=== PATIENT | female | born 1965 | race Caucasian/White ===

== ENCOUNTER 2020-10-25 15:32 | Outpatient (CLI) | payer OTHER, SELFPAY ==
--- NOTE | ~2020-10-25 | MM_ITS ---
EXAMINATION: MM screening phuc BI w yina HISTORY: Screening mammogram TECHNIQUE: Craniocaudal and mediolateral oblique 3-D tomosynthesis images were obtained and synthetic 2-D images were generated. CAD analysis was submitted and interpreted. COMPARISON: 07/08/2019 diagnostic left digital mammogram and limited left breast ultrasound 06/24/2019, 11/14/2017 bilateral digital screening mammogram examinations BREAST PARENCHYMAL COMPOSITION: FINDINGS: There is no evidence of suspicious mass, calcification, or architectural distortion to sugg est malignancy in either breast. There has been no suspicious interval change. IMPRESSION: 1. No mammographic evidence of malignancy. 2. Recommend routine screening mammography in one year. BI-RADS Category 1: Negative Reviewed, dictated and finalized at location B. WRAPPER
== END 2020-10-25 15:33 | disposition home or self-care (01) ==
PROVIDERS: Visit Provider Student in an Organized Health Care Education/Training Program
DX: Z12.31 Encounter for screening mammogram for malignant neoplasm of breast (principal)
CPT/HCPCS: 77063; 77067

== ENCOUNTER 2023-01-04 07:19 | Outpatient (CLI) | payer OTHER, SELFPAY ==
[2023-01-04 19:20] LABS: Basophils Percent Auto 0.5 % (0.2-1.2); Eosinophils Absolute Auto 0.1 K/mm3 (0-0.3); Eosinophils Percent Auto 3.5 % (0-4.4); Hematocrit 38.1 % (37.0-47.0); Hemoglobin 13.4 g/dL (12.0-15.0); Immature Granulocyte Absolute 0.01 K/mm3 (0.00-0.031); Immature Granulocyte Percent A 0.2 % (0-0.5); Lymphocytes Absolute Auto 1.44 K/mm3 (0.9-3.2); Lymphocytes Percent Auto 35.7 % (18.3-44.2); Mean Corpuscular HGB Conc 35.2 g/dl (32-36); Mean Corpuscular Volume 93.8 fl (80-100); Mean Platelet Volume 8.7 fl (7.4-10.4); Monocytes Absolute Auto 0.4 K/mm3 (0.1-0.6); Monocytes Percent Auto 9.4 % (2.6-8.5); Neutrophils Percent Auto 50.7 % (45.5-73.1); Platelet Count Result 270 k/mm3 (150-375); Red Blood Count 4.06 M/mm3 (4.2-5.4); Red Cell Distribution Width 11.6 % (11.5-14.5)
[2023-01-04 19:52] LABS: Alanine Aminotransferase 35 U/L (6-35); Albumin Level 4.4 g/dL (3.5-5.1); Alkaline Phosphatase 55 U/L (38-126); Anion Gap 5 mmol/L (8-16); Aspartate Amino Transferase 42 U/L (14-36); Bilirubin,Total 0.4 mg/dL (0.2-1.3); Blood Urea Nitrogen 10 mg/dL (7-17); Calcium 8.9 mg/dL (8.4-10.2); Carbon Dioxide 29 mmol/L (22-30); Chloride 101 mmol/L (98-107); Cholesterol 212 mg/dL (0-200); Estimated Glomerular Filt Rate > 60; Glucose 90 mg/dL (65-110); HDL Direct 83 mg/dL; Potassium 3.8 mmol/L (3.4-5.0); Sodium 135 mmol/L (137-145); Triglycerides 97 mg/dL (<150)
[2023-01-04 20:03] LABS: LDL Cholesterol Direct 116 mg/dL
== END 2023-01-04 07:20 | disposition home or self-care (01) ==
LOC: ANHASCLAB 07:22
PROVIDERS: PCP Family Medicine; Visit Provider Family Medicine
DX: R53.83 Other fatigue (principal); Z13.29 Encounter for screening for other suspected endocrine disorder; Z13.220 Encounter for screening for lipoid disorders
CPT/HCPCS: 36415; 80053; 80061; 84443; 85025

== ENCOUNTER 2023-08-27 15:36 | Outpatient (CLI) | payer OTHER, SELFPAY ==
--- NOTE | ~2023-08-27 | MM_ITS ---
EXAMINATION: MM screening phuc BI w yina HISTORY: Screening TECHNIQUE: Craniocaudal and mediolateral oblique 3-D tomosynthesis images were obtained and synthetic 2-D images were generated. CAD analysis was submitted and interpreted. COMPARISON: Comparison to multiple prior studies sequentially, with oldest reviewed study dated 11/14. BREAST PARENCHYMAL COMPOSITION: There are scattered areas of fibroglandular density. FINDINGS: There is no evidence of suspicious mass, calcification, or architectural distortion to sugg est malignancy in either breast. There has been no suspicious interval change. IMPRESSION: 1. No mammographic evidence of malignancy. 2. Recommend routine screening mammography in one year. BI-RADS Category 1: Negative Reviewed, dictated and finalized at location A. EN PRINTING PRESS OPERATOR
== END 2023-08-27 15:37 | disposition home or self-care (01) ==
LOC: ANHIMG 15:36
PROVIDERS: PCP Family Medicine; Visit Provider Student in an Organized Health Care Education/Training Program
DX: Z12.31 Encounter for screening mammogram for malignant neoplasm of breast (principal)
CPT/HCPCS: 77063; 77067

== ENCOUNTER 2024-05-07 08:11 | Outpatient (CLI) | payer OTHER, SELFPAY ==
[2024-05-07 20:24] LABS: Basophils Percent Auto 0.5 % (0.2-1.2); Eosinophils Absolute Auto 0.1 K/mm3 (0-0.3); Eosinophils Percent Auto 1.4 % (0-4.4); Immature Granulocyte Absolute 0.03 K/mm3 (0.00-0.031); Immature Granulocyte Percent A 0.7 % (0-0.5); Lymphocytes Absolute Auto 1.27 K/mm3 (0.9-3.2); Lymphocytes Percent Auto 29.5 % (18.3-44.2); Mean Corpuscular HGB Conc 33.3 g/dl (32-36); Mean Corpuscular Hemoglobin 33.3 pg (26-34); Mean Corpuscular Volume 99.8 fl (80-100); Mean Platelet Volume 8.9 fl (7.4-10.4); Monocytes Absolute Auto 0.3 K/mm3 (0.1-0.6); Monocytes Percent Auto 7.7 % (2.6-8.5); Neutrophils Absolute Auto 2.6 K/mm3 (1.3-6.7); Neutrophils Percent Auto 60.2 % (45.5-73.1); Platelet Count Result 318 k/mm3 (150-375); Red Blood Count 4.51 M/mm3 (4.2-5.4); Red Cell Distribution Width 11.9 % (11.5-14.5); White Blood Count 4.3 K/mm3 (4.5-10.0)
[2024-05-07 20:31] LABS: Alanine Aminotransferase 51 U/L (6-35); Albumin Level 4.7 g/dL (3.5-5.1); Alkaline Phosphatase 60 U/L (38-126); Anion Gap 12 mmol/L (4-12); Aspartate Amino Transferase 86 U/L (14-36); Bilirubin,Total 0.6 mg/dL (0.2-1.3); Blood Urea Nitrogen 7 mg/dL (7-17); Carbon Dioxide 29 mmol/L (22-30); Chloride 94 mmol/L (98-107); Cholesterol 192 mg/dL (0-200); Estimated Glomerular Filt Rate > 60; Glucose 86 mg/dL (65-110); HDL Direct 92 mg/dL; Potassium 3.9 mmol/L (3.4-5.0); Sodium 135 mmol/L (137-145); Triglycerides 104 mg/dL (<150)
[2024-05-07 20:42] LABS: LDL Cholesterol Direct 97 mg/dL
[2024-05-07 20:56] LABS: Thyroid Stimulating Hormone 0.037 uIU/mL (0.465-4.680)
== END 2024-05-07 08:12 | disposition home or self-care (01) ==
LOC: ANHASCLAB 08:12
PROVIDERS: PCP Nurse Practitioner Family; Visit Provider Family Medicine
DX: Z00.00 Encounter for general adult medical examination without abnormal findings (principal); Z13.29 Encounter for screening for other suspected endocrine disorder; R53.83 Other fatigue; Z13.220 Encounter for screening for lipoid disorders
CPT/HCPCS: 36415; 80053; 80061; 84443; 85025

== ENCOUNTER 2025-03-16 13:45 | Outpatient (RCR) | payer OTHER, SELFPAY ==
--- NOTE | 2025-01-27 14:27 | OPREHPOC ---
Outpatient Therapy Plan of Care This is a Multidisciplinary Plan of Care that may contain components documented by all disciplines (PT, OT, and ST.) PT Problem 1 PT Problem #1 Knowledge Deficit PT Goal 1 Goal / Goal Update 1. pt to be IND with issued HEP Target Visit 8 PT Problem 2 PT Problem #2 Pain PT Goal 1 Goal / Goal Update 1. pt to report neck pain no greater than 3/10 in the last week 2. Pt to report no more than 2 headaches in the last week Target Visit 8 PT Problem 3 PT Problem #3 Impaired Range of Motion PT Goal 1 Goal / Goal Update 1. Pt to improve cervical extension ROM to 45 deg Target Visit 8
--- NOTE | 2025-01-27 14:28 | PTOPEVAL1 ---
Assessment and note entered by My Yañez, PT, DPT Evaluation Information Assessment Status Evaluation Diagnosis neck pain ICD-10 Condition Codes (PT) Cervicalgia M54.2 Subjective Information Pt states she has some lingering neck pain, states it feels similar to a injury that she had a long time ago. States she has had neck pain for 30 years. She gets a lot of headaches, about 5 times per week on average. She states is getting radicular pain down her R arm. Pt has a desk job. Reported Pain Level Pain Score 3: Self Report Assessment PT Clinical Summary Pt presents to therapy today for her initial evaluation. She demonstrates decreased active and passive cervical ROM, limited by soft tissue. She had decreased upper thoracic mobility and sits with a forward and rounded posture. Skilled therapy services are indicated for soft tissue mobilization to decrease muscle restriction, for pain management, and to return to PLOF. Plan of Care Interventions Electrical Stimulation,Hot Pack/Cold Pack,Manual Therapy,Neuro Re-education,Patient/Caregiver Education,Therapeutic Activities,Therapeutic Exercise PT Services Indicated Yes Treatment Frequency and 1x/wk for 6 visits Duration These treatments will address the objective and functional deficits as defined above. The patient will be advanced safely and appropriately in order for the patient to progress towards his/her prior level of function. Additional exercises will be introduced and as well as a comprehensive home exercise program upon discharge, if needed, ?to ensure carryover of functional gains achieved in the clinic. This treatment plan has been reviewed and agreement upon by the patient.
--- NOTE | 2025-02-09 12:29 | PCPTNOTE ---
Patient rescheduled appointment for this date.
--- NOTE | 2025-03-16 14:53 | OPREHPOC ---
Outpatient Therapy Plan of Care This is a Multidisciplinary Plan of Care that may contain components documented by all disciplines (PT, OT, and ST.) PT Problem 1 PT Problem #1 Knowledge Deficit PT Goal 1 Goal / Goal Update 1. pt to be IND with issued HEP Target Visit 8 Progress Met PT Problem 2 PT Problem #2 Pain PT Goal 1 Goal / Goal Update 1. pt to report neck pain no greater than 3/10 in the last week 2. Pt to report no more than 2 headaches in the last week Target Visit 8 Progress Partially Met PT Problem 3 PT Problem #3 Impaired Range of Motion PT Goal 1 Goal / Goal Update 1. Pt to improve cervical extension ROM to 45 deg Target Visit 8 Progress Met
--- NOTE | 2025-03-16 14:53 | PTOPDC ---
Assessment and note entered by Karlo Ruiz, PT Evaluation Information Assessment Status Discharge Diagnosis neck pain ICD-10 Condition Codes (PT) Cervicalgia M54.2 Subjective Information Reports that she has seen some improvement but is still having some trouble sleeping. States that she feels some soreness at times in the neck and shoulder that she states feels like bruising. Overall plans to follow up with MD for possible imaging to assess structure of cervical spine including MRI. Requests discharge at this time. Reported Pain Level Pain Score 3: Self Report Assessment PT Clinical Summary Patient has met majority of goals for therapy at this time. She has not seen subjective improvement in frequency of headaches and sleeping ability at this time and will continue to work on this through [facility]. She requested potential further imaging and I would be in agreement with this. Plan of Care PT Services Indicated Yes
== END 2025-03-17 07:46 | disposition home or self-care (01) ==
LOC: ANHGOSHPT 13:45
PROVIDERS: PCP Nurse Practitioner Family; Visit Provider Orthopaedic Surgery
DX: M54.2 Cervicalgia (principal)
CPT/HCPCS: 97014; 97110; 97140; 97161; G0283

== ENCOUNTER 2025-06-16 14:52 | Outpatient (CLI) | payer OTHER, SELFPAY ==
--- OUTSIDE RECORDS SUMMARY | 2025-03-18 05:07 | XMS_ITS ---
Author Organization [facility], Address [address] [place], [place] [address] [address] Care Team Providers Care Senior Information Developer Name Role Phone Lloyd LOUNatalia Primary Care Provider Dee tamiilaJerry Ding Unavailable [phone] RESULTS Component Value Reference Range Notes MRI : Cervical without Contr ast Reviewed date:03/18/2025 02:33:27 PM Interpretation:approved Performing Lab: Notes/Report: approved REASON FOR VISIT MRI PROBLEMS Problem Type ICD Code Onset Dates Problem Status W/U Status Risk SNOMED Code Notes Problem Cervical radiculopathy (M54.12) Active confirmed Cervical radiculopathy (72231742) Encounters Encounter Location Date Provider Diagnosis [facility] [address] [address] 03/18/2025 Jerry Silva Cervical radiculopat hy M54.12 ASSESSMENTS Encounter Date Diagnosis Assessment Notes Treatment Notes Treatment Clinical Notes 03/18/2025 Cervical radiculopathy (ICD-10 - M54.12) PLAN OF TREATMENT No Information
--- OUTSIDE RECORDS SUMMARY | 2025-03-25 04:53 | XMS_ITS ---
Author Organization [facility], Address [address] [address] Care Team Providers Care Appraiser Art Name Role Phone Natalia Dixon Primary Care Provider Dee tamiilaJerry Ding Unavailable [phone] REASON FOR VISIT SNN MRI Cervical 03-24-25 PROCEDURES Procedure Date Ordered Date Performed Result Body Sit e Cervical Selective Nerve Root Injection 03/25/2025 025 N/A Encounters Encounter Location Date Provider Diagnosis [facility] [address] [place] [address] 03/25/2025 Jerry Silva Cervical radiculopat hy M54.12 ASSESSMENTS Encounter Date Diagnosis Assessment Notes Treatment Notes Treatment Clinical Notes 03/25/2025 Cervical radiculopathy (ICD-10 - M54.12) PLAN OF TREATMENT No Information
--- OUTSIDE RECORDS SUMMARY | 2025-04-21 06:14 | XMS_ITS ---
Author Organization [facility], Address [address] [facility] [address] [place] [address] Care Team Providers Care Hr Director Name Role Phone Natalia Dixon Primary Care Provider Dee vailable Jerry Silva Unavailable [phone] REASON FOR VISIT Injection Update Encounters Encounter Location Date Provider Diagnosis [facility], [address] [facility] [address] [place] [address] 04/21/2025 Jerry Silva PLAN OF TREATMENT No Information
--- NOTE | ~2025-06-16 | MM_ITS ---
EXAMINATION: MM screening phuc BI w yina HISTORY: Screening TECHNIQUE: Craniocaudal and mediolateral oblique 3-D tomosynthesis images were obtained and synthetic 2-D images were generated. CAD analysis was submitted and interpreted. COMPARISON: Comparison to multiple prior studies sequentially, with oldest reviewed study dated , 02/22/2012. BREAST PARENCHYMAL COMPOSITION: There are scattered areas of fibroglandular density. FINDINGS: There is no evidence of suspicious mass, calcification, or architectural distortion to suggest malignancy in either breast. IMPRESSION: 1. No mammographic evidence of malignancy. 2. Recommend routine screening mammography in one year. BI-RADS Category 1: Negative Reviewed, dictated and finalized at location B.
--- OUTSIDE RECORDS SUMMARY | 2025-06-16 14:58 | XMS_ITS | Clinical Summary ---
Author Organization [facility] Address [address] [address] Phone Care Team Providers Care Biomedical Equipment Technician Name Role Phone Unavailable Primary Care Provider Unavailabl e Allergies Active Allergy Reactions Criticality Noted Date Comments Bacitracin-Polymyxin B Itching 04/07/2020 Medications glycopyrrolate (ROBINUL) 2 MG Tablet Take 1 Tab by mouth 2 times daily. 60 Tab 6 9 Active estradiol (ESTRACE) 1 MG Tablet Take 1 mg by mouth daily. Hazardous: Medication requires special safe handling and disposal. Active ACYCLOVIR PO Take by mouth. Ac tive ASCOMP-CODEINE [id number] MG Capsule TAKE 1 CAPSULE BY MOUTH EVERY 8 HOURS NEEDED FOR PAIN 60 Cap 0 Active Active Problems Problem Noted Date Diagnosed Date Irritable bowel syndrome with diarrhea 0 Tension headache 04/07/2020 Family History Medical History Relation Name Comments Diabetes Maternal Grandmother Diabetes Mother Relation Name Status Comments Maternal Grandmother Mother Social History Tobacco Use Types Packs/Day Years Used Date Smoking Tobacco: Never Smokeless Tobacco: Never Alcohol Use Standard Drinks/Week Comments Yes 0 (1 standard drink = 0.6 oz pur e alcohol) rare Comments No Sex and Gender Information Value Date Recorded Sex Assigned at Not on file Legal Sex Female 1:50 PM CDT Gender Identity Not on file Sexual Orientation Not on file Plan of Treatment Health Maintenance Due Date Last Done Comments Hepatitis C Virus (HCV) Screening 1967 TdaP Immunization 1967 Hepatitis B Immunization (1 of 3 - 19+ 3-dose series) 1986 Cologuard 2012 Colonoscopy 2012 Colorectal Cancer Screening 2012 Immunochemical Fecal Occult Blood 2012 Pneumococcal Immunization (5 0+ years) (1 of 1 - PCV) 2017 Zoster Immunization (1 of 2) 2017 SARS-COV-2 Immunization (3 - season) 2024 10/28/2020, 10/07/2020 Influenza Immunization (#1) 2025 Respiratory Syncytial Virus (RSV) Immunization (Adult) (1 - 1-dose 75+ series) 2042 Human Papillomavirus (HPV) Immunization Aged Out No longer eligible b ased on patient's age to complete this topic Meningococcal Immunization (ACWY) Aged Out No longer eligible b ased on patient's age to complete this topic Rotavirus Immunization Aged Out No lo nger eligible based on patient's age to complete this topic Insurance [employer] [facility]
--- OUTSIDE RECORDS SUMMARY | 2025-06-16 14:59 | XMS_ITS | Clinical Summary ---
Author Organization [facility] Address [address] [place] [address] Care Team Providers Care Sandwich Counter Attendant Name Role Phone None, Provider Primary Care Provider Unavaila ble Allergies Active Allergy Reactions Criticality Noted Date Comments Bacitracin-Polymyxin B Itching 04/07/2020 Wuvhzkhh-Cescbpqar-Riviwab din Swelling,Contact Dermatitis,Redness 02/06/2022 Medications ASCOMP-CODEINE [id number] MG capsule 01/02/20 22 Active BIOTIN OR Active Multiple Vitamins-Mineral s (WOMENS MULTIVITAMIN OR) Act lloyd estradiol (ESTRACE) 1 MG tablet Take 1 mg by mouth daily. Active METAMUCIL FIBER OR Active acyclovir 800 MG tablet Active Glycopyrrolate 2 MG Tab glycopyrrolate 2 mg tablet Active Family History Medical History Relation Comments Colon Cancer Maternal Grandmother Relation Status Comments Maternal Grandmother Social History Tobacco Use Types Packs/Day Years Used Date Smoking Tobacco: Never Smokeless Tobacco: Never Alcohol Use Standard Drinks/Week Comments Yes 11.7 (1 standard drink = 0.6 oz pure alcohol) Comments No Sex and Gender Information Value Date Recorded Sex Assigned at Not on file Legal Sex Female 7:34 AM CDT Gender Identity Not on file Sexual Orientation Not on file Last Filed Vital Signs Vital Sign Reading Time Taken Comments Blood Pressure 117/70 02/19/2022 8:25 AM CDT Pulse 68 02/19/2022 8:25 AM CDT Temperature 36.3 C (97.3 F) 02/19/2022 8:00 AM CDT Respiratory Rate 13 02/19/2022 8:25 AM CDT Oxygen Saturation 100% 02/19/2022 8:25 AM CDT Inhaled Oxygen Concentration - - Weight 53.1 kg (117 lb) 02/06/2022 10:16 AM CDT Height 157.5 cm (5' 2) 02/06/2022 10:16 AM CDT Body Mass Index 21.4 02/06/2022 10:16 AM CDT Plan of Treatment Health Maintenance Due Date Last Done Comments Annual Physical 1970 Hepatitis C 1985 DTaP, Tdap and Td Vaccines ( 1 - Tdap) 1986 Hepatitis B Vaccines (1 of 3 - 19+ 3-dose series) 1986 Mammogram Screening 2007 Pneumococcal Vaccine: 50+ Years (1 of 1 - PCV) 2017 Zoster Vaccines (1 of 2) 2017 COVID-19 Vaccine (3 - 2023-2 5 season) 2024 10/28/2020, 10/07/2020 Colorectal Cancer Screening Colonoscopy (10 Years) 02/20/2032 02/19/2022, 02/19/2022 Meningococcal B Vaccine Aged Out No l onger eligible based on patient's age to complete this topic Meningococcal Vaccine Aged Out No dimitri clayton eligible based on patient's age to complete this topic RSV Immunizations Under 20 Months Aged Out No longer eligible b ased on patient's age to complete this topic Procedures Procedure Name Priority Date/Time Associated Diagnosis Comments COLONOSCOPY Routine 02/19/2022 6:53 AM CDT from Last 3 Months or Most Recently Relevant to Health Maintenance Insurance [employer] Care Teams Sandwich Counter Attendant Relationship Specialty Start Date End Date None, Provider, PCP - General 02/19/22
--- OUTSIDE RECORDS SUMMARY | 2025-06-16 14:59 | XMS_ITS | Patient Health Record ---
Author Organization [facility] , Address [address] [address] Care Team Providers Care Manager News Name Role Phone Natalia Dixon Primary Care Provider Dee Jerry Suggs Unavailable [phone] ALLERGIES Allergen (clinical drug ingredient) Drug/Non Drug Allergy documented on EMR Reaction Allergy Type Onset Date Status Neosporin Unknown Drug Allergy Active RESULTS Component Value Reference Range Notes X ray : Cervical Spine 7 vie ws, AP, Lateral, Swimmers, Obliques, Flexion and Extension Reviewed date:01/19/2025 11:19:51 AM Interpretation:1035 Performing Lab: Notes/Report: 1035 MRI : Cervical without Contr ast Reviewed date:03/18/2025 02:33:27 PM Interpretation:approved Performing Lab: Notes/Report: approved REASON FOR REFERRAL Reason Eval and Treat Diagnosis 1 Neck pain (M54.2) Diagnosis 2 Cervicalgia (M54.2) Referral Organization [facility] Referring Provider First Name Jerry Referring Provider Last Name Ricardo Referring Provider Speciality Orthopedic Surgery Referred Provider Specialty Physical The rapy Referral Priority Routine MEDICATIONS Medication SIG (Take, Route, Fr equency, Duration) Notes Start Date End Date Status Fiber Active Emergen-C Immune Act lloyd Paxil Active Estradiol Active SOCIAL HISTORY Tobacco Use: Social History Observation Description Date Details (start date - stop date) Never Smoker NA - NA Sex Assigned At : Social History Observation Description Sex Assigned At Unknown Tobacco Use/Smoking Question Answer Notes Are you a nonsmoker Alcohol Screen Question Answer Notes Did you have a drink contain ing alcohol in the past year? Yes How often did you have a dri nk containing alcohol in the past year? 4 or more times a week (4 points) Points 4 Interpretation Positive PROBLEMS Problem Type ICD Code Onset Dates Problem Status W/U Status Risk SNOMED Code Notes Problem Neck pain (M54.2) Active confirmed Neck pain (30912586) Problem Cervicalgia (M54.2) Active confirmed Cervicalgia (16232664) Problem Cervical spinal stenosis (M48.02) Active confirmed Cervical s marian stenosis (90500180) Problem Cervical radiculopathy (M54.12) Active confirmed Cervical radiculopathy (54916603) VITAL SIGNS Height 61 in 01/19/2025 Weight 118 lbs 01/19/2025 BMI 22.29 kg/m2 01/19/2025 PROCEDURES Procedure Date Ordered Date Performed Result Body Sit e Cervical Selective Nerve Root Injection 03/25/2025 025 N/A Encounters Encounter Location Date Provider Diagnosis [facility], [address] [address] 01/19/2025 Jerry Silva Neck pain M54.2 and Cervical spinal stenosis M48.02 [facility], [address] [address] 03/18/2025 Jerry Rutz Cervical radiculopat hy M54.12 [facility], [address] [address] 03/25/2025 Jerry Rutz Cervical radiculopat hy M54.12 [facility], [address] [address] 04/21/2025 Jerry Ricardo ASSESSMENTS Encounter Date Diagnosis Assessment Notes Treatment Notes Treatment Clinical Notes 01/19/2025 Neck pain (ICD-10 - M54.2) 01/19/2025 Cervical spinal stenosis (ICD-10 - M48.02) 03/18/2025 Cervical radiculopathy (ICD-10 - M54.12) 03/25/2025 Cervical radiculopathy (ICD-10 - M54.12) PLAN OF TREATMENT No Information Insurance Providers Payer Name Payer Address Payer Phone Subscriber Number Group Number Insured Name Patient Relationship to Insured Coverage Start Date Coverage End Date [employer] [address] [place] [address] [id number] Marcus Chang Spouse - patient is the spouse of the insured MEDICAL (GENERAL) HISTORY Medical History History ICD Code Migraines Headaches Surgical History Surgery Date(Month/Year) Right Rotator Cuff Repair Hysterectomy Hospitalization History Reason Date(Month/Year) As per above.
== END 2025-06-16 14:53 | disposition home or self-care (01) ==
LOC: ANHFOHIMG 14:54
PROVIDERS: PCP Student in an Organized Health Care Education/Training Program; Visit Provider Student in an Organized Health Care Education/Training Program
DX: Z12.31 Encounter for screening mammogram for malignant neoplasm of breast (principal)
CPT/HCPCS: 77063; 77067